=== PATIENT | female | born 1995 | race African-American/Black ===

== ENCOUNTER 2021-08-14 09:48 | Emergency (ER) | payer OTHER ==
[~2021-08-14] VITALS: Ht 165.1 cm; Wt 55.0 kg
[2021-08-14 10:18] VITALS: BP 114/77
[2021-08-14] MEDS ORDERED: NAPR-681 MT (12:28)
[2021-08-15] MEDS ORDERED: IBUP-2028 MT (14:28)
== END 2021-08-14 12:59 | disposition home or self-care (01) ==
LOC: ER 09:48
DX: S90.31XA Contusion of right foot, initial encounter (principal); S90.32XA Contusion of left foot, initial encounter; W22.8XXA Striking against or struck by other objects, initial encounter; Y93.89 Activity, other specified; Y92.9 Unspecified place or not applicable
CPT/HCPCS: 73620; 99283

== ENCOUNTER 2021-08-15 09:19 | Emergency (ER) | payer OTHER ==
[~2021-08-15] VITALS: Ht 165.1 cm; Wt 49.0 kg
[~2021-08-15 09:19] MED LIST: NAPR-681 MT
[2021-08-15 09:28] VITALS: BP 123/72
[2021-08-15] MEDS ORDERED: ACETAMINOPHEN 500MG TABLET PO ONE (11:30)
[2021-08-15] MEDS ORDERED: KETOROLAC 30MG/ML VIAL IM ONE (14:15)
[2021-08-15] MEDS ORDERED: IBUP-2028 MT (14:28)
== END 2021-08-15 14:58 | disposition home or self-care (01) ==
LOC: ER 09:19
DX: S20.219A Contusion of unspecified front wall of thorax, initial encounter (principal); W22.01XA Walked into wall, initial encounter; Y93.01 Activity, walking, marching and hiking; Y92.89 Other specified places as the place of occurrence of the external cause; Y99.8 Other external cause status
CPT/HCPCS: 70450; 71045; 81025; 96372; 99284; J1885

== ENCOUNTER 2022-08-26 09:57 | Emergency (ER) | payer MEDICAID, OTHER ==
[~2022-08-26] VITALS: Ht 165.1 cm; Wt 52.0 kg
[~2022-08-26 09:57] MED LIST changes: +ACET-2708 MT; +BACL-141 MT; +IBUP-2028 MT; +IBUP-2029 MT; +LIDO700A15 TP
[2022-08-26 10:46] VITALS: BP 122/80
[2022-08-26] MEDS ORDERED: IBUP-2029 MT (16:20)
[2022-08-26] MEDS ORDERED: IBUPROFEN 600MG TABLET PO ONE (16:30)
== END 2022-08-26 17:03 | disposition home or self-care (01) ==
LOC: ER 09:57
DX: M54.50 Low back pain, unspecified (principal); M79.10 Myalgia, unspecified site; Z79.899 Other long term (current) drug therapy
CPT/HCPCS: 99282

== ENCOUNTER 2023-06-03 08:05 | Emergency (ER) | payer MEDICAID ==
[2023-06-03 10:32] VITALS: BP 126/86; PULSE 93; RESP 18; TEMP 98.3
== END 2023-06-03 10:34 | disposition home or self-care (01) ==
LOC: ER 08:05
DX: M79.674 Pain in right toe(s) (principal)
CPT/HCPCS: 73630; 99283

== ENCOUNTER 2023-09-17 15:29 | Emergency (ER) | payer MEDICAID ==
[~2023-09-17] VITALS: Ht 165.1 cm; Wt 50.0 kg
[2023-09-17 15:31] VITALS: BP 127/87; RESP 16; TEMP 98.7; O2SAT 100
[2023-09-17 15:34] VITALS: PULSE 102
== END 2023-09-17 18:43 | disposition left against medical advice (07) ==
LOC: ER 15:29
DX: R07.0 Pain in throat (principal); Z53.21 Procedure and treatment not carried out due to patient leaving prior to being seen by health care provider
CPT/HCPCS: 99281

== ENCOUNTER 2024-02-17 13:29 | Emergency (ER) | payer MEDICAID, OTHER ==
[~2024-02-17] VITALS: Ht 165.1 cm; Wt 49.4 kg
[2024-02-17 13:39] VITALS: O2SAT 98
[2024-02-17 13:54] VITALS: BP 116/82; PULSE 91; RESP 18; TEMP 98.4; O2SAT 100
[2024-02-17] MEDS ORDERED: KETOROLAC 15MG/ML VIAL IM ONE (15:15)
[2024-02-17] MEDS ORDERED: KETOROLAC 15MG/ML VIAL IM NR (17:45)
== END 2024-02-17 16:23 | disposition left against medical advice (07) ==
LOC: ER 13:29
DX: M54.50 Low back pain, unspecified (principal); Z79.899 Other long term (current) drug therapy
CPT/HCPCS: 99281; J1885

== ENCOUNTER 2024-02-19 12:41 | Emergency (ER) | payer OTHER ==
[~2024-02-19] VITALS: Ht 170.2 cm; Wt 60.0 kg
[2024-02-19 12:49] VITALS: TEMP 98.2; O2SAT 99
[2024-02-19] MEDS: DEXAMETHASONE 2MG TABLET PO SCH (13:45)
[2024-02-19] MEDS: DEXAMETHASONE 1MG TABLET PO ONE (14:02)
[2024-02-19] MEDS: IBUPROFEN 600MG TABLET PO ONE (14:02)
[2024-02-19] MEDS ORDERED: METH-653 MT (14:44)
[2024-02-19 14:53] VITALS: BP 113/80; PULSE 81; RESP 18; O2SAT 98
== END 2024-02-19 14:54 | disposition home or self-care (01) ==
LOC: ER 12:41
DX: S09.90XA Unspecified injury of head, initial encounter (principal); M54.50 Low back pain, unspecified; Z79.899 Other long term (current) drug therapy; W18.30XA Fall on same level, unspecified, initial encounter; Y93.89 Activity, other specified; Y92.89 Other specified places as the place of occurrence of the external cause; Y99.8 Other external cause status
CPT/HCPCS: 99284; 70450; 81025; 72131; J8540

== ENCOUNTER 2024-04-27 12:01 | Emergency (ER) | payer MEDICAID, OTHER ==
[~2024-04-27] VITALS: Ht 170.2 cm; Wt 58.0 kg
[~2024-04-27 12:01] MED LIST changes: +METH-653 MT
[2024-04-27 12:33] VITALS: O2SAT 100
[2024-04-27 13:09] LABS: BASOPHILS % 0.6 % (0.0-2.0); EOSINOPHILS % 0.6 % (0.0-5.0); HEMATOCRIT. 42.8 % (36.0-48.0); HEMOGLOBIN. 14.1 g/dL (12.0-16.0); MEAN CORPUSCULAR HEMOGLOBIN 30.8 pg (28.0-32.0); MEAN CORPUSCULAR HGB CONC 32.9 g/dL (31.0-37.0); MEAN CORPUSCULAR VOLUME 93.4 fL (81.0-99.0); MEAN PLATELET VOLUME 7.8 fl (7.4-10.4); MONOCYTES % 9.1 % (2.0-8.0); NEUTROPHILS % 64.7 % (40.0-76.0); PLATELET 278 x1000/uL (130-400); RED BLOOD CELL COUNT 4.59 mill/uL (4.2-5.4); RED CELL DISTRIBUTION WIDTH 14.5 % (11.6-14.6); WHITE BLOOD COUNT 3.7 x1000/uL (4.5-11.0)
[2024-04-27 13:15] LABS: HCG SCREEN NEGATIVE
[2024-04-27 13:29] LABS: CHLORIDE 96 mEq/L (98-107); POTASSIUM 3.4 mEq/L (3.5-5.1); SODIUM 135 mEq/L (136-145)
[2024-04-27 13:30] LABS: CALCIUM 10.3 mg/dL (8.7-10.4); CARBON DIOXIDE 21 mEq/L (21-32)
[2024-04-27 13:34] LABS: CREATININE 0.8 mg/dL (0.6-1.0)
[2024-04-27 13:36] LABS: GLUCOSE 59 mg/dL (70-105); UREA NITROGEN BLOOD 7 mg/dL (9-23)
[2024-04-27 13:40] LABS: TROPONIN I HIGH SENSITIVITY < 4 ng/L (3.0-34)
[2024-04-27] MEDS: SODIUM CHLORIDE 0.9% 1,000 ML IV ONE (18:54)
[2024-04-27] MEDS: POTASSIUM CHLORIDE 20MEQ TABLET SR PO ONE (18:54)
[2024-04-27 19:56] VITALS: BP 129/82; PULSE 90; RESP 16; TEMP 36.94740; O2SAT 100
[2024-04-27] MEDS ORDERED: IOHEXOL-350 100 ML BOTTLE ONE (23:36)
== END 2024-04-27 19:57 | disposition home or self-care (01) ==
LOC: ER 12:01
DX: R07.89 Other chest pain (principal); F41.9 Anxiety disorder, unspecified; M54.30 Sciatica, unspecified side; Z79.899 Other long term (current) drug therapy
CPT/HCPCS: 80048; 84703; 85025; 85379; 84484; 36415; 71045; 71275; 93005; 99285; Q9967; J7030; Z7610 ×4

== ENCOUNTER 2024-07-25 13:44 | Emergency (ER) | payer MEDICAID, OTHER ==
[~2024-07-25] VITALS: Ht 162.6 cm; Wt 44.0 kg
[2024-07-25 13:48] VITALS: BP 137/95; PULSE 77; RESP 18; TEMP 37.2; O2SAT 98; O2SAT 99
[2024-07-25] MEDS: TETANUS, DIPHTHERIA, PERTUSSIS VAC/PF 0.5ML (>10YR OLD) IM ONE (15:11)
[2024-07-25 15:12] VITALS: TEMP 98.9
[2024-07-25] MEDS: ACETAMINOPHEN 325MG TABLET PO ONE (15:12)
[2024-07-25] MEDS ORDERED: TOPUD MT (16:28)
== END 2024-07-25 16:44 | disposition home or self-care (01) ==
LOC: ER 13:52
DX: A35 Other tetanus (principal)
CPT/HCPCS: 90715; 90471; 99283; Z7610

== ENCOUNTER 2024-10-19 18:03 | Emergency (ER) | payer MEDICAID, OTHER ==
[~2024-10-19] VITALS: Ht 165.1 cm; Wt 49.0 kg
[~2024-10-19 18:03] MED LIST changes: +LIDO-53 TP; -LIDO700A15 TP; +TOPUD MT
[2024-10-19 18:10] VITALS: BP 123/89; PULSE 99; RESP 17; TEMP 37.1; O2SAT 99
== END 2024-10-19 21:49 | disposition left against medical advice (07) ==
LOC: ER 18:03
DX: H92.01 Otalgia, right ear (principal); M54.2 Cervicalgia; Z53.21 Procedure and treatment not carried out due to patient leaving prior to being seen by health care provider

== ENCOUNTER 2025-02-09 14:37 | Emergency (ER) | payer MEDICAID ==
[~2025-02-09] VITALS: Ht 165.1 cm; Wt 55.0 kg
[~2025-02-09 14:37] MED LIST changes: +IBUP-1455 MT; -IBUP-2029 MT
[2025-02-09 14:39] VITALS: O2SAT 99
[2025-02-09 17:54] LABS: CLARITY URINE TURBID (CLEAR); GLUCOSE URINE NEGATIVE (NEGATIVE); KETONES URINE TRACE (NEGATIVE); LEUKOCYTE ESTERASE URINE NEGATIVE (NEGATIVE); NITRITE URINE NEGATIVE (NEGATIVE); OCCULT BLOOD URINE NEGATIVE (NEGATIVE); PH URINE 5.5 (4.5-8.0); PROTEIN URINE 1+ (NEGATIVE); SPECIFIC GRAVITY URINE 1.032 (1.005-1.030); UROBILINOGEN URINE 1.0 E.U./dL (0.2-1.0)
[2025-02-09 18:25] LABS: BASOPHILS % 0.7 % (0.0-2.0); EOSINOPHILS % 0.7 % (0.0-5.0); HEMATOCRIT. 38.7 % (36.0-48.0); HEMOGLOBIN. 12.7 g/dL (12.0-16.0); LYMPHOCYTES % 51.8 % (20.0-50.0); MEAN PLATELET VOLUME 8.1 fl (7.4-10.4); MONOCYTES % 8.8 % (2.0-8.0); NEUTROPHILS % 38.0 % (40.0-76.0); PLATELET 253 x1000/uL (130-400); RED BLOOD CELL COUNT 4.25 mill/uL (4.2-5.4); RED CELL DISTRIBUTION WIDTH 13.7 % (11.6-14.6)
[2025-02-09 18:30] LABS: BACTERIA URINE NONE SEEN; COLOR URINE YELLOW (YELLOW); RBC URINE NONE SEEN /hpf (0-2); SQUAMOUS EPITHELIAL CELL URINE NONE SEEN /lpf (RARE/1+); WBC URINE NONE SEEN /hpf (0-2)
[2025-02-09 18:31] LABS: AMORPHOUS SEDIMENT URINE 4+ /lpf; MUCUS URINE TRACE /lpf (< = 2+)
[2025-02-09 18:42] LABS: HCG SCREEN NEGATIVE
[2025-02-09 18:50] LABS: CREATININE 0.7 mg/dL (0.6-1.0)
[2025-02-09 18:51] LABS: UREA NITROGEN BLOOD 6 mg/dL (9-23)
[2025-02-09 18:52] LABS: ASPARTATE AMINOTRANSFERASE 68 IU/L (<34)
[2025-02-09 18:53] LABS: BILIRUBIN TOTAL 0.4 mg/dL (0.1-1.0); PROTEIN TOTAL 7.4 g/dL (6.0-8.3)
[2025-02-09] MEDS ORDERED: RALT400T MT (19:25)
[2025-02-09] MEDS ORDERED: EMTR1TAB21 MT (19:25)
[2025-02-09 20:05] VITALS: BP 131/94; PULSE 66; RESP 15; TEMP 36.9; O2SAT 98
[2025-02-13 04:09] LABS: CHLAMYDIA TRACHOMATIS NAA Negative (Negative); NEISSERIA GONORRHOEAE NAA Negative (Negative)
[2025-02-13 04:09] LABS: HSV TYPE 2 SPECIFIC AB IGG Non Reactive (Non Reactive)
== END 2025-02-09 20:08 | disposition home or self-care (01) ==
LOC: ER 14:37
DX: Z11.3 Encounter for screening for infections with a predominantly sexual mode of transmission (principal); Z88.8 Allergy status to other drugs, medicaments and biological substances; Z79.899 Other long term (current) drug therapy
CPT/HCPCS: 86695; 86696; 87491; 87591; 80053; 81003; 81025; 84703; 85025; 86592; 36415; 99283; Z7610

== ENCOUNTER 2025-02-26 15:45 | Emergency (ER) | payer MEDICAID ==
[~2025-02-26] VITALS: Ht 165.1 cm; Wt 54.0 kg
[~2025-02-26 15:45] MED LIST changes: +EMTR1TAB21 MT; +RALT400T MT
[2025-02-26 15:56] VITALS: O2SAT 100
[2025-02-26 17:36] LABS: BASOPHILS % 0.4 % (0.0-2.0); EOSINOPHILS % 0.5 % (0.0-5.0); HEMATOCRIT. 40.2 % (36.0-48.0); HEMOGLOBIN. 13.0 g/dL (12.0-16.0); LYMPHOCYTES % 53.0 % (20.0-50.0); MEAN PLATELET VOLUME 7.6 fl (7.4-10.4); MONOCYTES % 12.7 % (2.0-8.0); NEUTROPHILS % 33.4 % (40.0-76.0); PLATELET 252 x1000/uL (130-400); RED BLOOD CELL COUNT 4.30 mill/uL (4.2-5.4); RED CELL DISTRIBUTION WIDTH 14.3 % (11.6-14.6)
[2025-02-26 17:50] LABS: CREATININE 0.6 mg/dL (0.6-1.0)
[2025-02-26 17:51] LABS: TROPONIN I HIGH SENSITIVITY < 4 ng/L (3.0-34); UREA NITROGEN BLOOD < 5 mg/dL (9-23)
[2025-02-26 18:11] LABS: HCG SCREEN NEGATIVE
[2025-02-26] MEDS: KETOROLAC 30MG/ML VIAL IV SCH (19:03)
[2025-02-26 20:01] VITALS: BP 133/91; PULSE 84; RESP 12; TEMP 36.8; O2SAT 100
[2025-02-26] MEDS ORDERED: IBUP-2028 MT (20:02)
[2025-02-26] MEDS: POTASSIUM CHLORIDE 20MEQ/PACKET PO SCH (20:07)
[2025-02-26] MEDS ORDERED: IOHEXOL-350 100 ML BOTTLE ONE (20:39)
== END 2025-02-26 20:10 | disposition home or self-care (01) ==
LOC: ER 15:45
DX: R07.9 Chest pain, unspecified (principal); F12.90 Cannabis use, unspecified, uncomplicated; Z88.8 Allergy status to other drugs, medicaments and biological substances
CPT/HCPCS: 80048; 84703; 85025; 85379; 84484; 36415; 71045; 71275; 93005; 96374; 99285; Q9967; J1885; Z7610

== ENCOUNTER 2025-04-09 12:19 | Emergency (ER) | payer MEDICAID ==
[~2025-04-09] VITALS: Ht 167.6 cm; Wt 50.0 kg
[2025-04-09] MEDS ORDERED: IBUP-2030 MT (16:36)
[2025-04-09] MEDS ORDERED: HYDR50TA55 MT (16:41)
[2025-04-09 16:58] VITALS: BP 135/91; PULSE 84; RESP 14; TEMP 36.7; O2SAT 99
== END 2025-04-09 16:59 | disposition home or self-care (01) ==
LOC: ER 12:19
DX: S90.31XA Contusion of right foot, initial encounter (principal); F10.20 Alcohol dependence, uncomplicated; F41.9 Anxiety disorder, unspecified; M54.30 Sciatica, unspecified side; Z79.624 Long term (current) use of inhibitors of nucleotide synthesis; Z79.899 Other long term (current) drug therapy; Z88.8 Allergy status to other drugs, medicaments and biological substances; Y90.9 Presence of alcohol in blood, level not specified
CPT/HCPCS: 73610; 73630; 99284

== ENCOUNTER 2025-05-05 13:16 | Emergency (ER) | payer MEDICAID ==
[~2025-05-05] VITALS: Ht 165.1 cm; Wt 52.0 kg
[~2025-05-05 13:16] MED LIST changes: +HYDR50TA55 MT; +IBUP-2030 MT
[2025-05-05 13:20] VITALS: O2SAT 97
[2025-05-05 13:28] VITALS: BP 136/92; PULSE 78; RESP 18; TEMP 36.8; O2SAT 95
[2025-05-05] MEDS: KETOROLAC 30MG/ML VIAL IM ONE (15:21)
[2025-05-05] MEDS ORDERED: ACET-3800 MT (15:38)
[2025-05-05] MEDS ORDERED: HYDR50TA55 MT (15:43)
== END 2025-05-05 16:46 | disposition home or self-care (01) ==
LOC: ER 14:46
DX: J06.9 Acute upper respiratory infection, unspecified (principal); R51.9 Headache, unspecified; F41.9 Anxiety disorder, unspecified; Z79.624 Long term (current) use of inhibitors of nucleotide synthesis; Z88.8 Allergy status to other drugs, medicaments and biological substances; Z20.822 Contact with and (suspected) exposure to COVID-19
CPT/HCPCS: 99285; 70450; 71045; 87426; 81025; 96372; J1885; 99283